=== PATIENT | male | born 1955 | race Caucasian/White ===

== ENCOUNTER → 2016-07-02 | Outpatient (CLI) | payer BC ==
[~2016-07-02] MED LIST: ASPI-428 PO; ATOR-26 PO; Albuterol inhaler INH; CHN/1 PO; CLOT10TR2 MT; DICL-201 PO; OMEG10007 PO
--- NOTE | 2016-07-02 15:50 | DIAGNOSTIC IMAGING REPORT ---
MRI OF THE LUMBAR SPINE WITHOUT IV CONTRAST CLINICAL HISTORY: Bilateral leg pain and numbness. COMPARISON STUDY: No priors. TECHNIQUE: MRI of the lumbar spine is performed utilizing various T1 and T2-weighted sequences in the axial and sagittal planes. IV contrast was not administered for this examination. FINDINGS: Vertebral body height is maintained throughout the lumbar spine. Minimal anterolisthesis is noted at L3-L4. Alignment is otherwise preserved. There are small anterior osteophytes seen throughout. A hemangioma is noted in the body of L3. The transverse and spinous processes are grossly intact. There is no evidence of spondylolysis. Intervertebral discs: There is mild degenerative disc desiccation seen throughout the lumbar spine. Loss of height is noted at L4-L5 and L5-S1. Spinal cord: The visualized spinal cord is normal in morphology and signal intensity. The conus medullaris terminates at the level of L1. The nerve roots of the cauda equina are normal in morphology. L1-L2: Unremarkable. L2-L3: Unremarkable. L3-L4: There is broad-based posterior disc bulge with annular fissure. In conjunction with hypertrophy of the ligamentum flavum and mild epidural lipomatosis, there is minimal acquired compromise of the central canal at this level with a minimum AP diameter of 9.5 mm. There is mild bilateral subarticular stenosis. The neural foramina are patent. L4-L5: There is minimal posterior disc bulge with annular fissure. In conjunction with epidural lipomatosis, there is minimal central canal narrowing at this level. The minimum AP diameter measures 9.5 mm. There is mild bilateral subarticular stenosis. The neural foramina are patent. L5-S1: There is mild posterior disc bulge. The central canal is patent. There is bilateral subarticular stenosis, with probable impingement on the exiting bilateral L5 nerve roots. Facet arthropathy is of no consequence. The neural foramina are clear. Sacrum: Visualized sacrum is normal in morphology and signal intensity. Soft tissues: The paraspinous soft tissues are normal as visualized. Parapelvic cysts are suspected in the left kidney. IMPRESSION: 1. Degenerative disc disease as above. There is minimal acquired compromise of the central canal. See discussion for detailed level by level analysis. 2. A disc bulge at L5-S1 causes bilateral subarticular stenosis and likely impinges on the exiting bilateral L5 nerve roots. See above. 3. No destructive bony process is identified. 4. There is mild epidural lipomatosis seen in the lower lumbar region. Dictated: 07/02/2016 3:29 PM Transcribed: 07/02/2016 3:50 PM YONI_James Electronically signed by: Gen Naranjo M.D. 07/02/2016 3:54 PM Dictated Date/Time: 07/02/2016 3:29 PM
== END | disposition home or self-care (01) ==
LOC: C.MRIBC 14:42
PROVIDERS: ATTEND Orthopaedic Surgery Orthopaedic Surgery of the Spine
DX: M48.06 Spinal stenosis, lumbar region (principal); M51.36 Other intervertebral disc degeneration, lumbar region; M51.26 Other intervertebral disc displacement, lumbar region

== ENCOUNTER 2024-01-05 07:58 | Observation (INO) ==
--- NOTE | 2023-11-20 12:31 | PAT Medication Instructions ---
Medication Instructions Date of Service November 20, 2023 Home Medications Medication Instructions Recorded lidocaine 5 % topical patch 1 patch topical DAILY #30 ea 07/24/23 (Lidoderm) celecoxib 100 mg capsule 100 mg PO BID #60 caps 10/24/23 albuterol sulfate 90 mcg/actuation aerosol inhaler 2 puffs inhalation Q6H PRN sob aspirin 81 mg tablet,delayed release (Adult Aspirin Regimen) 81 mg PO DAILY omega-3 fatty acids 1,000 mg capsule (Fish Oil Concentrate) 1,000 mg PO BID fluticasone propionate 230 mcg-salmeterol 21 mcg/actuation HFA inhaler (Advair HFA) 1 inh inhalation BID rosuvastatin 40 mg tablet 40 mg PO QAM lidocaine 5 % topical patch (Lidoderm) 1 patch topical DAILY ketoprofen 10 % topical cream in packet 1 applic topical DAILY tiotropium bromide 2.5 mcg/actuation mist for inhalation (Spiriva Respimat) 2 puff inhalation QAM celecoxib 100 mg capsule 100 mg PO BID cholecalciferol (vitamin D3) 25 mcg (1,000 unit) tablet (Vitamin D3) 25 mcg PO DAILY multivitamin 1 tab PO QAM Continue as directed lidocaine 5 % topical patch (Lidoderm) 1 patch topical DAILY (avoid placement near surgery site prior to surgery) ASK your surgeon for instructions celecoxib 100 mg capsule 100 mg PO BID ASK your prescriber and surgeon aspirin 81 mg tablet,delayed release (Adult Aspirin Regimen) 81 mg PO DAILY STOP taking 2 weeks before surgery (or as soon as possible if surgery is within 2 weeks) omega-3 fatty acids 1,000 mg capsule (Fish Oil Concentrate) 1,000 mg PO BID STOP taking 24 hours before surgery ketoprofen 10 % topical cream in packet 1 applic topical DAILY DO NOT take the morning of surgery cholecalciferol (vitamin D3) 25 mcg (1,000 unit) tablet (Vitamin D3) 25 mcg PO DAILY multivitamin 1 tab PO QAM Take morning of surgery With a small sip of water, OTHERWISE NOTHING TO EAT OR DRINK AFTER MIDNIGHT: albuterol sulfate 90 mcg/actuation aerosol inhaler 2 puffs inhalation Q6H PRN sob (use if needed; please bring rescue inhaler with you to hospital day of surgery if possible) fluticasone propionate 230 mcg-salmeterol 21 mcg/actuation HFA inhaler (Advair HFA) 1 inh inhalation BID rosuvastatin 40 mg tablet 40 mg PO QAM tiotropium bromide 2.5 mcg/actuation mist for inhalation (Spiriva Respimat) 2 puff inhalation QAM Take evening before surgery albuterol sulfate 90 mcg/actuation aerosol inhaler 2 puffs inhalation Q6H PRN sob (if needed) fluticasone propionate 230 mcg-salmeterol 21 mcg/actuation HFA inhaler (Advair HFA) 1 inh inhalation BID Other Notes If you have any questions please call us at [phone] or [phone] or [phone] or [phone]
--- NOTE | 2023-12-01 09:42 | Anesthesiology Consultation ---
Date of Service December 01, 2023 Assessment & Plan (1) Encounter for pre-operative examination: - Case discussed with Dr. Mello who advised patient is acceptable to proceed, does not need anything additional prior to surgery. - Outpatient joint assessment: Patient is currently scheduled for inpatient pathway. If re-evaluated and patient/surgeon requests outpatient pathway, patient is not ideal candidate for outpatient joint program from anesthesia standpoint. Chart Review Chart Review: Acceptable Risk for Surgery and Patient seen in Pre Admission Testing Teaching & Discussion Pre-Anesthesia Teaching/Discussion Notes: Instructed NPO after midnight before surgery, except medications with 15 cc of water. Medication instructions provided according to the PAT guidelines. History Surgery Operation Date: 12/22/23 11:15 Proposed Procedures p Left Anterior Total Hip Arthroplasty - Yrn Welsh, Height/Weight Height: 5 ft 10.5 in Weight: 107 kg Allergies Allergy/AdvReac Type Severity Reaction Status Date / Time No Known Allergies Allergy Verified 11/20/23 07:53 Medications Home Medications Medication Instructions Recorded Confirmed Last Taken albuterol sulfate 90 mcg/actuation 2 puffs inhalation Q6H PRN sob 01/30/18 11/20/23 Unknown aerosol inhaler aspirin 81 mg tablet,delayed 81 mg PO DAILY 01/30/18 11/20/23 Unknown release (Adult Aspirin Regimen) omega-3 fatty acids 1,000 mg 1,000 mg PO BID 01/30/18 11/20/23 Unknown capsule (Fish Oil Concentrate) fluticasone propionate 230 1 inh inhalation BID 08/20/22 11/20/23 Unknown mcg-salmeterol 21 mcg/actuation HFA inhaler (Advair HFA) rosuvastatin 40 mg tablet 40 mg PO QAM 06/04/23 11/20/23 Unknown ketoprofen 10 % topical cream in 1 applic topical DAILY 09/24/23 11/20/23 Unknown packet tiotropium bromide 2.5 2 puff inhalation QAM 09/24/23 11/20/23 Unknown mcg/actuation mist for inhalation (Spiriva Respimat) celecoxib 100 mg capsule 100 mg PO BID #60 caps 10/24/23 11/20/23 Unknown cholecalciferol (vitamin D3) 25 25 mcg PO DAILY 11/20/23 11/20/23 Unknown mcg (1,000 unit) tablet (Vitamin D3) lidocaine 5 % topical patch 1 patch topical DAILY #30 ea 11/20/23 Unknown (Lidoderm) multivitamin 1 tab PO QAM 11/20/23 11/20/23 Unknown Past Medical History Medical History (Updated 12/01/23 @ 16:27 by Tyra Ahumada PA-C) CAD (coronary artery disease) denies stents or surgery-chest CT 07/2023: Atherosclerosis of the thoracic aorta and coronary vasculature. Dyslipidemia History of COVID-19 (03/2023) no hosp; resolved HTN (hypertension) controlled, stable per pt Hx of fracture of femur (~1970) left Low back pain Lumbar spinal stenosis Sleep apnea O2 @ 2lpm hs; denies any other lung/breathing issues Patient denies h/o stroke, seizures, heart attack, heart failure, DM, blood clots/DVTs or blood transfusions. Exercise / Class Metabolic Activity II 4-5 Yardwork/Stairs/Walk up hill (denies chest discomfort or shortness of breath with one flight of stairs) Past Surgical History Surgical History History of open reduction and internal fixation (ORIF) procedure (1970) left femur fx Hx of appendectomy Hx of arthroscopy of left knee Hx of colonoscopy Past Anesthesia History No Hx of Anesthesia Complications and No Family Hx of Anesthesia Complications History of PONV No Hx of PONV and No Hx of Motion Sickness Social History Smoking Status: Current every day smoker tobacco type: cigarettes Smoking cigarettes per day: 10-15 per day - advised Do You Dip or Chew Tobacco: No Hx Alcohol Use: Yes Alcohol type: beer alcohol intake frequency: holidays/special occasions only Hx Substance Use: Yes (advised) substance use type: marijuana Last Used Substance Other:: "couple weeks ago" Review of Systems Patient denies chest pain, shortness of breath, dyspnea on exertion, reflux, fever, chills, cough, wheezing, or palpitations. Physical Exam Vital Signs Vitals BP 117/76 P 55 TEMP 98.2 SP02 95% on RA RESP 18 Physical Patient resting comfortably in chair in no acute distress, alert and oriented, responding appropriately throughout visit Full cervical extension range of motion without pain TMD 3.5 finger breadths Mallampati Score 3 Dentition: several missing teeth, denies chipped or loose teeth, caps/crowns, implants or bridges Lungs: normal respiratory effort. Good air movement, clear throughout to auscu ltation, no adventitious breath sounds Cardiac: regular rate and rhythm, no murmurs noted Carotid arteries: negative bruit bilat Lab Results Anesthesia Preop Results Results Anesthesia Widget: WBC 7.22 K/ul (4.8-10.8) 12/01/23 Hgb 15.3 g/dl (14.0-18.0) 12/01/23 Hct 46.4 % (42.0-52.0) 12/01/23 Plt 191 K/uL (130-400) 12/01/23 Na 138 mmol/L (136-145) 12/01/23 K 5.3 mmol/L (3.5-5.1) H 12/01/23 Cl 105 mmol/L (98-107) 12/01/23 CO2 27 mmol/L (21-32) 12/01/23 BUN 26 mg/dl (6-23) H 12/01/23 Creat 1.22 mg/dl (0.6-1.4) 12/01/23 Glucose Level 112 mg/dl (70-99(Fasting)) H 12/01/23 PT 9.9 Seconds (9.0-12.0) 12/01/23 PTT 26 Seconds (21-31) 12/01/23 INR 0.9 (0.9-1.1) 12/01/23 Blood Type O Positive 12/01/23 Antibody Screen NEGATIVE 12/01/23 Testing Electrocardiogram Date: 11/18/23 Sinus bradycardia, rate 58 bpm Left axis deviation RBBB Echocardiogram Date: 03/17/23 EF 50-54% Sinus bradycardia at 50 bpm Moderate cLVH Normal LV wall motion Moderate aortic valve sclerosis Proximal ascending thoracic aorta is mildly enlarged at 3.9 cm Stress Test Date: 04/05/22 Pharmacologic MPHR 55% Normal without evidence of scar or inducible ischemia EF 60% Other Testing Chest CT 08/22/23 Tiny scattered calcified granulomas. Atherosclerosis of the thoracic aorta and coronary vasculature. Stable right adrenal calcification. Borderline ectasia of the ascending thoracic aorta measuring up to proximally 3.9 cm.
--- NOTE | 2024-01-01 07:13 | History & Physical Report ---
Date of Service January 01, 2024 Assessment & Plan (1) Degenerative joint disease of left hip: We will proceed with a left anterior total of arthroplasty. Postoperatively he will be started on aspirin for DVT prophylaxis and kept overnight in the hospital for postop medical management. He plans to use fit for play upon discharge. History of Present Illness Chief Complaint: Osteoarthritis of the left hip. Primary Care Provider: Darrick Acosta MD Víctor is a pleasant 68-year-old male who has been dealing with chronic increasing left hip and groin pain. He has been seen by another provider. He had an intraarticular hip injection about 2 months ago. That took care of all of his pain. He is very happy with that. Unfortunately, it lasted 2 weeks. He is still struggling with his left hip. X-rays and clinical examination been diagnostic for advanced osteoarthritis of the left hip. After failing conservative treatment, he has elected to proceed with a left total hip arthroplasty. Allergies Allergy/AdvReac Type Severity Reaction Status Date / Time No Known Allergies Allergy Verified 11/20/23 07:53 Home Medications Medication Instructions Recorded Confirmed Type albuterol sulfate 90 mcg/actuation 2 puffs inhalation Q6H PRN sob 01/30/18 11/20/23 History aerosol inhaler aspirin 81 mg tablet,delayed 81 mg PO DAILY 01/30/18 11/20/23 History release (Adult Aspirin Regimen) omega-3 fatty acids 1,000 mg 1,000 mg PO BID 01/30/18 11/20/23 History capsule (Fish Oil Concentrate) fluticasone propionate 230 1 inh inhalation BID 08/20/22 11/20/23 History mcg-salmeterol 21 mcg/actuation HFA inhaler (Advair HFA) rosuvastatin 40 mg tablet 40 mg PO QAM 06/04/23 11/20/23 History ketoprofen 10 % topical cream in 1 applic topical DAILY 09/24/23 11/20/23 History packet tiotropium bromide 2.5 2 puff inhalation QAM 09/24/23 11/20/23 History mcg/actuation mist for inhalation (Spiriva Respimat) celecoxib 100 mg capsule 100 mg PO BID #60 caps 10/24/23 11/20/23 Rx cholecalciferol (vitamin D3) 25 25 mcg PO DAILY 11/20/23 11/20/23 History mcg (1,000 unit) tablet (Vitamin D3) lidocaine 5 % topical patch 1 patch topical DAILY #30 ea 11/20/23 Rx (Lidoderm) multivitamin 1 tab PO QAM 11/20/23 11/20/23 History diclofenac sodium 1 % topical gel 4 g topical QID #100 grams 12/14/23 Rx (Voltaren Arthritis Pain) Past Med/Surg History Problem List Degenerative joint disease of left hip Elevated blood pressure reading Left knee pain Left hip pain Lumbar facet joint pain Greater trochanteric bursitis Lumbar spinal stenosis (Chronic) History of appendectomy (Chronic) History of arthroscopy of left knee (Chronic) Lumbar radiculopathy (Chronic) CAD (coronary artery disease) (Chronic) Dyslipidemia (Chronic) History of appendectomy (Chronic) Low back pain radiating to both legs (Chronic) History of high cholesterol (Chronic) Medical History Low back pain Hx of fracture of femur (~1970) left CAD (coronary artery disease) denies stents or surgery-chest CT 07/2023: Atherosclerosis of the thoracic aorta and coronary vasculature. Lumbar spinal stenosis History of COVID-19 (03/2023) no hosp; resolved HTN (hypertension) controlled, stable per pt Dyslipidemia Sleep apnea O2 @ 2lpm hs; denies any other lung/breathing issues Surgical History Hx of arthroscopy of left knee Hx of colonoscopy History of open reduction and internal fixation (ORIF) procedure (1970) left femur fx Hx of appendectomy Social History Smoking Status: Current every day smoker Tobacco Type: Cigarettes Cigarettes Per Day: 10-15 per day - advised; Second Hand Exposure: No; Do You Dip or Chew Tobacco: No; Tobacco Cessation Education Requested by Patient: No Hx Alcohol Use: Yes Alcohol type: beer Hx Substance Use: Yes (advised) Last Used Substance Other:: "couple weeks ago" Preferred Language: [place] Communication Ability: Effective Visual Impairment: No Limitations Hearing Ability: Normal Tire Curer Required: No Beliefs That Will Affect Care: None marital status: Current Living Situation: Spouse current occupational status: employed current occupation: [employer] Other Information That Helps Us Care for You: No Feels Safe at Home: Yes Safety Concerns: Feels Safe At This Time Assistive Devices: Denture - Upper, Glasses and Oxygen - at Night Review of Systems All systems reviewed & are unremarkable except as noted in HPI & below. Physical Exam On physical examination left hip, he has decreased range of motion. He has pain with forced internal/external rotation.. Constitutional WD/WN, vitals as above Eyes PERRL, conjunctivae normal, anicteric sclerae ENMT external ear and nose normal, oropharynx normal Neck trachea midline, no thyromegaly Respiratory normal respiratory effort Cardiovascular RRR, no murmur, no edema Gastrointestinal (Abdomen) normal bowel sounds, soft, nontender, no hepatosplenomegaly Psychiatric A+Ox3, euthymic affect Results & Data Results & Data Laboratory Results . Diagnostic Findings X-rays of the left hip show advanced osteoarthritis with joint space narrowing, osteophyte formation, and [id number] articulation. PG Care Time/CCT Total # of Minutes Spent Total Time Spent with Patient: Total time spent is greater than 50% in coordination of care (as documented) at patient's floor/unit and/or counseling patient: Coding Level of Care Code None Diagnoses Primary osteoarthritis of left hip M16.12 Osteoarthritis type: primary (1) Degenerative joint disease of left hip Osteoarthritis type: primary Qualified Code(s): M16.12 - Unilateral primary osteoarthritis, left hip
[~2024-01-05 07:58] MED LIST changes: -ASPI-428 PO; -ATOR-26 PO; -Albuterol inhaler INH; +BUPIVACAINE 0.5 % 5 MG/1 ML PF 10ML VIAL ONE; -CHN/1 PO; -CLOT10TR2 MT; -DICL-201 PO; +MIDAZOLAM HCL 1 MG/ML 2ML VIAL ONE; -OMEG10007 PO; +fentaNYL citrate PF 100 MCG/2 ML VIAL ONE
--- NOTE | 2024-01-05 08:04 | History & Physical Bridge Note ---
Date of Service January 05, 2024 History & Physical Bridge Note I have examined the patient, reviewed the History & Physical and in the interval since the performance of the History & Physical I have noted the following changes of clinical significance: no changes noted
--- OUTSIDE RECORDS SUMMARY | 2024-01-05 08:14 | External Medical Summary | Summary of Care ---
Author Name Unknown Organization [facility] Address [address] [place] [address] Phone [phone] Care Team Providers Care Caser Name Role Phone Darrick Acosta MD Primary Care Provider [phone]- [phone] Encounter Details Date Type Department Care Team (Late st Contact Info) Description 12/18/2023 Orders Only [facility] [address] [place] [address] AugustAntonio MD [address] [place] [address] Allergies No known active allergiesdocumented as of this encounter (statuses as of 12/18/2023) Medications Medication Sig Dispensed Refills Start Date End Date Status CHANTIX STARTING MONTH ELEANOR 0.5 MG X 11 & 1 MG X 42 PO TABSIndications:T obacco use disorder Take as directed on box 1 Package 0 11/05/2011 Active CHANTIX CONTINUING MONTH ELEANOR 1 MG PO TABSIndications:T obacco use disorder One tablet twice daily as directed on box 1 Package 4 11/05/2011 Active OMEGA-3 FISH OIL 1000 MG PO CAPSIndications:D yslipidemia, goal LDL below 100 Take 1 Capsule by mouth in the morning. 60 Cap 5 11/23/2013 Active ECOTRIN LOW STRENGTH 81 MG PO TBECIndications:R outine medical exam Take 1 Tablet by mouth at bedtime. 1 Tab 0 11/23/2013 Active CHANTIX STARTING MONTH ELEANOR 0.5 MG X 11 & 1 MG X 42 PO TABSIndications:T obacco use disorder Take as directed on box 1 Package 0 11/23/2013 Active CHANTIX STARTING MONTH ELEANOR 0.5 MG X 11 & 1 MG X 42 PO TABS Take as directed on box 1 Package 0 06/13/2014 Active Vitamin D-3 25 MCG (1000 UT) Oral Capsule Take 1 Capsule by mouth in the morning. Active Multi-Vitamin Daily Oral Tablet Take 1 Tablet by mouth in the morning. Active Econazole Nitrate 1 % External Cream (Spectazole)Indic ations:Tinea corporis,Majocchi 's granuloma,Onychom ycosis,Tinea pedis of both feet,Tinea manuum Apply 2x daily to rash in groin/legs/arm/fee t until next derm appointment 170 g 2 01/07/2023 Active Rosuvastatin Calcium 40 MG Oral Tablet (Crestor)Indicati ons:Dizziness,Asy mptomatic stenosis of right carotid artery,Dyslipidem ia, goal LDL below 70 Take 1 Tablet by mouth in the morning. 100 Tablet 3 03/07/2023 Active Celecoxib 100 MG Oral Capsule (CeleBREX) Take 1 Capsule by mouth in the morning and 1 Capsule before bedtime. Active oxygen IN GAS Use 2 L/min(Oxygen) as directed at bedtime. Active Spiriva Respimat 2.5 MCG/ACT Inhalation Aerosol Solution (Tiotropium [place] Monohydrate) Inhale 2 Puffs by mouth in the morning. 12 g 5 09/15/2023 Active Fluticasone-Salme terol 230-21 MCG/ACT Inhalation Aerosol (Advair HFA) INHALE TWO PUFFS BY MOUTH EVERY MORNING ANd 2 every evening 24 g 2 10/02/2023 10/01/2024 Active documented as of this encounter (statuses as of 12/18/2023) Active Problems Problem Noted Date Diagnosed Date Dyslipidemia, goal LDL below 70 07/08/2016 ASCVD (arteriosclerotic cardiovascular disease) 06/26/2016 PVD (peripheral vascular disease) 04/05/2016 Carotid artery disease 11/26/2013 Overview: 50-69% Tobacco use disorder 11/05/2011 documented as of this encounter (statuses as of 12/18/2023) Resolved Problems Problem Noted Date Diagnosed Date Resolved Date Epidermal inclusion cyst 06/13/2016 Asymptomatic carotid artery stenosis 04/15/2016 12/30/2018 Idiopathic neuropathy 11/06/20152017 Respiratory abnormality 11/06/201502/26 Neuropathy 09/27/2015 11/06/2015 Left-sided carotid artery disease 06/08/2015 01/31/2021 Obesity, Class I, BMI 30.0-3 4.9 (see actual BMI) 03/09/2015 03/13/2017 Overview: bmi= 30.27 03/09/15 History of tobacco use 03/09/201509/26 Screening for prostate cancer 02/27/2015 03/13/2017 Carotid artery calcification 11/23/2013 03/09/2015 Conjunctivitis 06/24/2013 03/09/2015 Overweight (BMI 25.0-29.9) 05/12/2012 1 05/13/2016 Overview: bmi= 28.65 05/12/12 Dermatitis 11/05/2011 03/09/2015 Dermatitis 11/05/2011 03/13/2017 Special screening for malign ant neoplasm of prostate 11/05/2011 03/09/2015 OBESITY, BMI= 30.20 10/12/10 10/12/2010 03/13/2017 OVERWEIGHT, BMI= 27.95 03/30/10 03/30/2010 03/13/2017 Special screening for malign ant neoplasms, colon 03/30/2010 03/13/2017 ROTATOR CUFF SYNDROME, RIGHT SHOULDER 11/16/2009 03/09/2015 Screening for prostate cancer 11/16/2009 03/13/2017 OVERWEIGHT 11/16/2009 03/30/2010 Shoulder joint pain 04/06/2009 03/09/20 15 Dermatitis 10/05/2008 11/05/2011 Screening for prostate cancer 10/06/2007 07/06/2008 Overview: Resolved per Screening Diagnosis Protocol #6 Need for influenza vaccination 04/01/2007 03/09/2015 Impotence of organic origin 04/01/2007 03/09/2015 Overweight (BMI 25.0-29.9) 04/01/2007 1 05/09/2014 Spasm of muscle 04/01/2007 10/06/2007 Shoulder joint pain 09/30/2006 10/06/19 08 Routine medical exam 09/30/2006 015 OBESITY, BMI= 31.16 09/30/06 09/30/2006 1 05/13/2016 Diverticulosis - ASYMPTOMATIC 07/18/2005 03/09/2015 Mixed dyslipidemia 05/07/2005 8 ADVANCE DIRECTIVE INFORMATION 04/09/2005 03/09/2015 Overview: brochure given to pt. Tobacco use disorder 04/09/2005 012 Dyslipidemia, goal to be determined 04/06/2009 Hemorrhoids 03/09/2015 Benign neoplasm of colon 01/2012 Overview: 4 small polyps Dyslipidemia, goal LDL below 100 07/08/2016 documented as of this encounter (statuses as of 12/18/2023) Immunizations Name Administration Dates Next Due COVID-19 mRNA, LNP-s, No Pre serve, 2-Dose Series (Pfizer) 02/27/2021,07/19/2020,06/23/2020 Pneumococcal Conjugate Vacci ne, 20-valent ([id number]) 05/31/2022 Pneumococcal Polysaccharide PPV23 (Pneumovax) 01/31/2021,03/30/2010,10/05/2008(Defe rred: Patient Refused - check ins) Seasonal Influenza, PF, 6 M & above, IM , (FluLaval or Fluzone) 12/31/2019,02/15/2019 02/16/2020 Seasonal Influenza, Quadriva lent Hd (Fluzone Hd) 02/05/2023,01/18/2022,01/31/2021 Seasonal Influenza, Quadriva lent, No Preserve, IM 03/15/2016,03/09/2015 Seasonal Influenza, Split, I IV3, With Preserve, Inj 05/02/2012,03/30/2010,02/26/2009,11/04/2007,04/01/2007 TDAP (age 10 and older)(Boostrix) 02/15/2019 02/16/2020 TDAP, Age 7 and older, IM (Adacel) 10/05/2008 Zoster Vaccine Recombinant (Shingrix) 06/11/2019 ,02/15/2019 06/18/2019 documented as of this encounter Social History Tobacco Use Types Packs/Day Years Used Date Smoking Tobacco: Every Day Cigarettes 0.5 44 Smokeless Tobacco: Never Comments:began at age 16 Alcohol Use Standard Drinks/Week Comments Yes 0 (1 standard drink = 0.6 oz pure alcohol) social (once or twice per month) PHQ-2 Answer Date Recorded PHQ Adult Total Score 0 02/04/2022 Hunger Vital Sign Answer Date Recorded Within the past 12 months, y ou worried that your food would run out before you got the money to buy more. Never true 11/09/19 23 Within the past 12 months, t he food you bought just didn't last and you didn't have money to get more. Never true 11/08/2022 Childcare Answer Date Recorded Do you feel overwhelmed with taking care of a child, family member or friend? No 11/08/2022 Does your family need help f inding childcare? (Household - for ages 0-17 years) Not on file 11/08/2022 Clothing Answer Date Recorded Have you been unable to get clothing when it was really needed? No 11/08/2022 Is your family able to get c lothes or diapers when needed? (Household - for ages 0-17 years) Not on file 11/08/2022 Personal Safety Answer Date Recorded Do you feel unsafe or have concerns for your saf ety? No 11/08/2022 Do you have concerns for you r family's safety? (Household - for ages 0-17 years) Not on file 11/08/2022 Utilities Answer Date Recorded Do you have trouble paying y our heating, water, or electric bill? (Adult - for ages 18 years and over) Not on file 11/10/2023 Is your family able to pay t he heat, water, or electric bill? (Household - for ages 0-17 years) Not on file 11/10/2023 Does your family have access to good internet? (Household - for ages 0-17 years) Not on file 11/10/2023 Employment Status Answer Date Recorded Are you unemployed or without regular income? No 11/08/2022 Does the household have a re gular source of income? (Household - for ages 0-17 years) Not on file 11/08/2022 Social Connections Answer Date Recorded How often do you feel lonely or isolated from those around you? (Adult - for ages 18 years and over) Not on file 11/10/2023 Financial Resource Strain Answer Date R ecorded Do you have any trouble payi ng for your medications, or do you think you might in the future? Yes 11/08/2022 Does your family have troubl e paying for medicine? (Household - for ages 0-17 years) Not on file 11/08/2022 Transportation Needs Answer Date Record ed READ ONLY Do you have troubl e getting a ride to medical visits or work? Never True 11/08/2022 Does your family have a hard time getting a ride to doctors visits? (Household - for ages 0-17 years) Not on file 11/08/2022 Has lack of transportation k ept you from medical appointments, meetings, work, or from getting things needed for daily living? Check all that apply. (Adult - for ages 18 years and over) Not on file 11/08/2022 Do you (or your family) have trouble finding or paying for a ride (transportation)? (Household - for ages 0-17 years) Not on file 11/08/2022 Housing Stability Answer Date Recorded Do you currently live in a s helter or have no steady place to sleep at night? No 11/08/2022 READ ONLY Do you think you a re at risk of becoming homeless? No 11/08/2022 Does your family worry about paying for your home or becoming homeless? (Household - for ages 0-17 years) Not on file 0 11/08/2022 Are you homeless or worried that you might be in the future? (Adult - for ages 18 years and over) Not on file Are you (or your family) zaid eless or worried that you might be in the future? (Household - for ages 0-17 years) Not on file Food Insecurity Answer Date Recorded Do you need food for this week? No 11/08/2022 Are you able to get enough f ood for your family? (Household - for ages 0-17 years) Not on file 11/08/2022 Does your family need food t his week? (Household - for ages 0-17 years) Not on file 11/08/2022 Do you always have enough fo od for your family? (Household - for ages 0-17 years) Not on file 11/08/2022 Sex and Gender Information Value Date Recorded Sex Assigned at Male 11/08/2022 10:34 AM EDT Gender Identity Male 11/08/2022 10:34 AM EDT Sexual Orientation Straight 11/08/2022 10 :34 AM EDT Job Start Date Occupation Industry Not on file Not on file Not on file documented as of this encounter Plan of Treatment Upcoming Encounters Date Type Department Care Team (Late st Contact Info) Description 02/09/2024 8:20 AM EDT Office Visit [facility] [address] [facility] [phone] Darrick Acosta MD [address] [place] [address] 03/23/2024 10:20 AM EST Office Visit [facility] [address] [facility] [place] [phone] Millie Hwang DO [address] [place] [address] 07/27/2024 9:00 AM EDT Office Visit Cardiology, [facility] [address] [facility] [place] [address] Kassandra Phillips CRNP [address] [place] [address] [place] [address] 08/23/2024 9:00 AM EDT [facility] [address] [facility] [place] [address] 09/16/2024 8:20 AM EDT Office Visit Pulmonary Medicine, [facility] [address] [facility] [place] [address] Chai Crum MD [address] [place] [address] Scheduled Procedures Name Priority Associated Diagnoses Date/Ti me COLONOSCOPY FLEXIBLE PROXIMAL DIAGNOSTIC Recall History of colon polyps Health Maintenance Due Date Last Done Comments Cologuard 2000 Fecal Occult Blood Test 2000 Sigmoidoscopy 2000 DISCUSS TOBACCO CESSATION (REFER TO SMARTSET #2494) 03/09/2016 03/09/2015 (Discussed) Adult Wellness Visit 2021 COVID-19 Vaccine ( season) 2022 02/27/2021, 07/19/2020, 06/23/2020 Depression Screening 02/04/2023 02/04/2022, 03/09/20 15 Influenza Vaccine (FLU shot) (#1) 2023 02/05/2023, 01/18/2022, 01/31/2021, Additional history exists Diabetes Screening 02/24/2026 02/24/2023, 1 , 02/03/2023, Additional history exists Colonoscopy 07/24/2026 07/24/2021, 06/27, 01/29/2011, Additional history exists Colorectal Cancer Screening 07/24/2026 DTaP,Tdap,and Td Vaccines (3 - Td or Tdap) 02/15/2029 02/15/2019, 10/05/2008 Zoster Vaccines Completed 06/11/2019, 02/15/2019 RETIRED - COLONOSCOPY-EVERY 5 YRS AGES 18-100 Discontinued 07/24/2021, 07/24/2021, 01/29/2011, Additional history exists Pneumococcal Vaccine: 65+ Years Completed 05/31/2022, 01/31/2021, 03/30/2010 AAA Screening Completed 05/05/2023, 01/13/2019 Lung Cancer Screening Completed 08/22/2023 , 08/16/2022, 02/11/2022, Additional history exists HPV (Gardasil) Vaccine Aged Out No lo nger eligible based on patient's age to complete this topic Hepatitis B Vaccine Aged Out No longe r eligible based on patient's age to complete this topic MENINGOCOCCAL (MENACTRA/MENVEO) Aged Out No longer eligible based on patient's age to complete this topic documented as of this encounter Medical Devices Not on filedocumented as of this encounter Procedures Procedure Name Priority Date/Time Associated Diagnosis Comments XR CHEST 1 VIEW Routine 12/14/2023 documented in this encounter Results * XR CHEST 1 VIEW (12/14/2023) Anatomical Region Laterality Modality Chest Other 12/14/2023 Neymar Ramírez MD RADIOLOGY (RAD GENER AL) documented in this encounter Care Teams Caser Relationship Specialty Start Date End Date Darrick Acosta MD [address] [place] [address] PCP - General Family Medicine 12/29/18 documented as of this encounter
--- OUTSIDE RECORDS SUMMARY | 2024-01-05 08:14 | External Medical Summary | Summary of Care ---
Author Name Unknown Organization [facility] Address [address] [facility] [address] Phone [phone] Care Team Providers Care Client Development Consultant Name Role Phone Darrick Acosta MD Primary Care Provider +1- [phone] Encounter Details Date Type Department Care Team (Late st Contact Info) Description 12/14/2023 Result Scan Unspecified Department <No scans attached> Allergies No known active allergiesdocumented as of this encounter (statuses as of 12/18/2023) Medications Medication Sig Dispensed Refills Start Date End Date Status OMEGA-3 FISH OIL 1000 MG PO CAPSIndications:D yslipidemia, goal LDL below 100 Take 1 Capsule by mouth in the morning. 60 Cap 5 11/23/2013 Active ECOTRIN LOW STRENGTH 81 MG PO TBECIndications:R outine medical exam Take 1 Tablet by mouth at bedtime. 1 Tab 0 11/23/2013 Active Vitamin D-3 25 MCG (1000 UT) [...] Respimat 2.5 MCG/ACT Inhalation Aerosol Solution (Tiotropium [place] Monohydrate) Inhale 2 Puffs by mouth in [...] (Pfizer) 02/27/2021,07/19/2020,06/23/2020 Pneumococcal Conjugate Vacci ne, 20-valent ([id number]) 05/31/2022 Pneumococcal Polysaccharide PPV23 (Pneumovax) 01/31/2021,03/30/2010,10/05/2008(Defe rred: Patient Refused - check ins) Seasonal Influenza, PF, 6 M & above, IM , (FluLaval or Fluzone) 12/31/2019,02/15/2019 02/16/2020 Seasonal Influenza, Quadriva lent Hd (Fluzone Hd) 02/05/2023,01/18/2022,01/31/2021 Seasonal Influenza, Quadriva lent, No Preserve, IM 03/15/2016,03/09/2015 Seasonal Influenza, Split, I IV3, With Preserve, Inj 05/02/2012,03/30/2010,02/26/2009,1104/2007,04/01/2007 TDAP (age 10 and older)(Boostrix) 02/15/2019 02/16/2020 [...] 11/08/2022 Does the household have a re lar source of income? (Household - for ages [...] Description 02/09/2024 8:20 AM EDT Office Visit [facility] [address] [facility] [phone] Darrick Acosta [facility] [address] [facility] [place] [address] 03/23/2024 10:20 AM EST Office Visit [facility] [address] [facility] [place] [phone] Millie Hwang DO [address] [facility] [place] [address] 07/27/2024 9:00 AM EDT Office Visit Cardiology, [address] [place] [address] Kassandra Phillips CRNP [address] [facility] [place] [address] 08/23/2024 9:00 AM EDT Imaging Radiology [facility] [address] [place] [address] 09/16/2024 8:20 AM EDT Office Visit Pulmonary Medicine, [address] [place] [address] Chai Crum MD [address] [place] [address] Scheduled Procedures Name Priority Associated Diagnoses Date/Ti me COLONOSCOPY FLEXIBLE PROXIMAL DIAGNOSTIC Recall History of colon polyps Health Maintenance Due Date Last Done Comments Cologuard 2000 Fecal Occult Blood Test 2000 Sigmoidoscopy 2000 DISCUSS TOBACCO CESSATION (REFER TO SMARTSET #3291) 03/09/2016 03/09/2015 (Discussed) Adult Wellness Visit 2021 [...] Procedure Name Priority Date/Time Associated Diagnosis Comments RADIOLOGY SCANNED RESULT 12/14/2023 documented in this encounter Results * RADIOLOGY SCANNED RESULT (12/14/2023) 12/14/2023 No Physician Data Unknown DIAGNOSTIC RAD IOLOGY SERVICES documented in this encounter Care Teams Client Development Consultant Relationship Specialty Start Date End Date Darrick Acosta MD [address] [place] [facility] [place] [address] PCP - General Family Medicine 12/29/18 documented as of this encounter
--- OUTSIDE RECORDS SUMMARY | 2024-01-05 08:14 | External Medical Summary | Summary of Care ---
Author Name Unknown Organization [facility] Address [address] [place] [address] Phone [phone] Care Team Providers Care Tourism Radio Presenter Name Role Phone Darrick Acosta MD Primary Care Provider [phone]- [phone] Reason for Referral * Evaluate & Treat - Unlimited Visits (Within 10 days (routine)) - Authorized Specialty Diagnoses / Procedures Referred By Jorge dillard Referred To Contact Physical Therapy / Physical Medicine And Rehab Diagnoses Impingement syndrome of left shoulder Antonio Pro MD [address] [facility] [place] [address] Referral ID Status Reason Start Date Expiration Date Visits Requested Visits Authorized [id number] Authorized Specialty Services Required 12/17/2023 999 999 Question Answer Referral Priority Within 10 days (routine) Where should this appointment be scheduled? [facility] Comments Left shoulder injury, impingement Reason for Visit * Reason Onset Date Comments Hospital Follow-Up Would like to know if he is able to do exercises to help build strength is to have hip surgery on Friday Hospital Follow-Up 12/17/2023 Encounter Details Date Type Department Care Team (Late st Contact Info) Description 12/17/2023 12:40 PM EDT Office Visit [facility] [place] Mathur [address] [phone] Antonio Pro MD [address] [place] [id number] Impingement syndrome of left shoulder*; Fall, subsequent encounter; Tobacco use disorder Allergies No known active allergiesdocumented as of this encounter (statuses as of 12/17/2023) Medications Medication Sig Dispensed Refills Start Date [...] Respimat 2.5 MCG/ACT Inhalation Aerosol Solution (Tiotropium [place] Monohydrate) Inhale 2 Puffs by mouth in the morning. 12 g 5 09/15/2023 Active Fluticasone-Salme terol 230-21 MCG/ACT Inhalation Aerosol (Advair HFA) INHALE TWO PUFFS BY MOUTH EVERY MORNING ANd 2 every evening 24 g 2 10/02/2023 10/01/2024 Active documented as of this encounter (statuses as of 12/17/2023) Active Problems Problem Noted Date Diagnosed Date Dyslipidemia, goal LDL below 70 07/08/2016 ASCVD (arteriosclerotic cardiovascular disease) 06/26/2016 PVD (peripheral vascular disease) 04/05/2016 Carotid artery disease 11/26/2013 Overview: 50-69% Tobacco use disorder 11/05/2011 documented as of this encounter (statuses as of 12/17/2023) Resolved Problems Problem Noted Date Diagnosed Date [...] as of this encounter (statuses as of 12/17/2023) Immunizations Name Administration Dates Next Due COVID-19 mRNA, LNP-s, No Pre serve, 2-Dose Series (Pfizer) 02/27/2021,07/19/2020,06/23/2020 Pneumococcal Conjugate Vacci ne, 20-valent ([id number]) 05/31/2022 Pneumococcal Polysaccharide PPV23 (Pneumovax) 01/31/2021,03/30/2010,10/05/2008(Defe rred: Patient Refused - check ins) Seasonal Influenza, PF, 6 M & above, IM , (FluLaval or Fluzone) 12/31/2019,02/15/2019 02/16/2020 Seasonal Influenza, Quadriva lent Hd (Fluzone Hd) 02/05/2023,01/18/2022,01/31/2021 Seasonal Influenza, Quadriva lent, No Preserve, IM 03/15/2016,03/09/2015 Seasonal Influenza, Split, I IV3, With Preserve, Inj 05/02/2012,03/30/2010,02/26/2009,04/2007,04/01/2007 TDAP (age 10 and older)(Boostrix) 02/15/2019 02/16/2020 TDAP, Age 7 and older, IM (Adacel) 10/05/2008 Zoster Vaccine Recombinant (Shingrix) 06/11/2019 ,02/15/2019 06/18/2019 documented as of this encounter Social History Tobacco Use Types Packs/Day Years Used Date Smoking Tobacco: Every Day Cigarettes 0.5 44 Smokeless Tobacco: Never Tobacco Cessation:Ready to Q uit: Not Asked; Counseling Given: Not Answered Comments:began at age 16 Alcohol Use Standard [...] No 11/08/2022 Does the household have a [facility] source of income? (Household - for ages [...] on file documented as of this encounter Last Filed Vital Signs Vital Sign Reading Time Taken Comments Blood Pressure 120/74 12/17/2023 12:33 PM EDT Pulse 56 12/17/2023 12:33 PM EDT Temperature 36.3 C (97.3 F) 12/17/2023 1 2:33 PM EDT Respiratory Rate 17 12/17/2023 12:3 3 PM EDT Oxygen Saturation 91% 12/17/2023 12: 33 PM EDT will drop to 88 Inhaled Oxygen Concentration - - Weight 105.3 kg (232 lb 3.2 oz) 12/17/2023 12:33 PM EDT Height 180.3 cm (5' 11") 12/17/2023 12: 33 PM EDT Body Mass Index 32.39 12/17/2023 12:33 PM EDT documented in this encounter Progress Notes * Antonio Pro MD - 12/17/2023 12:45 PM EDT Images from the original note were not included. Assessment and Plan 60-year-old male presents for ED follow up after being evaluated for a fall onto his left shoulder on 12/14/2023. X-ray ruled out fracture. He was wearing a sling. Exam consistent with impingement without rotator cuff tear. Recommend home exercises for rotator cuff and referral to physical therapy.He is scheduled for left hip replacement next week. Given the significant pain and limited ROM of the left shoulder I do think he was struggled postoperatively. It is likely appropriate to postpone the procedure for 4-6 weeks to allow the shoulder to heal. Continue use of Voltaren gel for pain control. If not having his procedure next week he can return to using Celebrex judiciously given historyof CAD and PVD. 1. Impingement syndrome of left shoulder - PHYSICAL THERAPY REFERRAL OP 2. Fall, subsequent encounter 3. Tobacco use disorder Wrap-Up Follow up as needed. History of Present Illness The patient is a 68 year old male with past medical history of dyslipidemia, PVD, tobacco use who presents for hospital follow up. Patient evaluated in the ED on 12/14/2023 following a fall. 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 He fell in his left shoulder. Denies loss of consciousness or head trauma. He had no initial pain, however, workup 12 hours later with significant pain and therefore presented to the ED. In the ED he had x-rays that ruled out fracture. Given reassuring x-rays he was provided Voltaren gel for pain control and placed in a sling. It was recommended he follow up with PCP for ongoing outpatient management. Today he reports that pain is slightly improved. He continues to wear the sling it was provided in the ED. he was agreeable to physical therapy. His main concern today is an upcoming hip replacement scheduled for early next week. He was unable to bear any weight on the left shoulder in his concerned about using a walker following the hip replacement. Physical Exam Vitals: 12/17/23 1233 Temp: 36.3 C (97.3 F) Pulse: 56 Resp: 17 SpO2: 91% BP: 120/74 BMI: 32.4 Physical Exam Physical Exam Vitals reviewed. Constitutional: General: He is not in acute distress. Pulmonary: Effort: Pulmonary effort is normal. No respiratory distress. Musculoskeletal: Comments: No visible deformity of the left shoulder. Limited active range of motion above 90 withforward flexion and abduction. He was 4+ out of 5 strength with rotator cuff testing. Most pain with full and empty can. Neurological: Mental Status: He is alert. I spent a total of 30-39 minutes (exact time 37 mins) on the date of service in preparation, delivery, and documentation of the care provided to Víctor Lopez excluding any time spent in the performance of separately billed services or time spent by another provider/QHP. This note has been completed in part utilizing [employer] Speech Voice Recognition Software. Due to technical limitations of the software, grammatical errors, random word insertions, prounoun errors, and incomplete sentences may occur. Any formal questions or concerns about the content, text, or information contained within the body of this dictation should be directly addressed to the provider for clarification. documented in this encounter Nursing Notes * Henrietta Agustin LPN - 12/17/2023 12:39 PM EDT The patient has been properly identified by confirmation of name and date of . Chief Complaint Patient presents with Hospital Follow-Up Would like to know if he is able to do exercises to help build strength is to have hip surgery on Friday documented in this encounter Plan of Treatment Upcoming Encounters Date Type Department Care Team (Late st Contact Info) Description 02/09/2024 8:20 AM EDT Office Visit [facility] [address] [facility] [place] [phone] Darrick Acosta MD [address] [facility] [phone] 03/23/2024 10:20 AM EST Office Visit [facility] [address] [facility] [place] [phone] Millie Hwang DO [address] [facility] [place] [address] 07/27/2024 9:00 AM EDT Office Visit Cardiology, [address] [place] [address] Kassandra Phillips CRNP [address] [facility] [place] [id number] 08/23/2024 9:00 AM EDT Imaging Radiology [facility] [address] [place] [address] 09/16/2024 8:20 AM EDT Office Visit Pulmonary Medicine, [address] [place] [address] Chai Crum MD [address] [place] [address] Scheduled Procedures Name Priority Associated Diagnoses Date/Ti me COLONOSCOPY FLEXIBLE PROXIMAL DIAGNOSTIC Recall History of colon polyps Scheduled Referrals Name Type Priority Associated Diagnoses Orde r Schedule PHYSICAL THERAPY REFERRAL OP Referral Within 10 days (routine) Impingement syndrome of left shoulder Ordered: 12/17/2023 Health Maintenance Due Date Last Done Comments Cologuard 2000 Fecal Occult Blood Test 2000 Sigmoidoscopy 2000 DISCUSS TOBACCO CESSATION (REFER TO SMARTSET #3701) 03/09/2016 03/09/2015 (Discussed) Adult Wellness Visit 2021 [...] Not on filedocumented as of this encounter Visit Diagnoses Diagnosis Impingement syndrome of left shoulder- Primary Other affections of shoulder region, not elsewhere classified Fall, subsequent encounter Tobacco use disorder documented in this encounter Care Teams Tourism Radio Presenter Relationship Specialty Start Date End Date Darrick Acosta MD [address] [place] [address] PCP - General Family Medicine 12/29/18 documented as of this encounter
--- OUTSIDE RECORDS SUMMARY | 2024-01-05 08:14 | External Medical Summary | Summary of Care ---
Author Name Unknown Organization [facility] Address [address] [facility] [place] [address] Phone [phone] Care Team Providers Care French Binder Name Role Phone Darrick Acosta MD Primary Care Provider [phone]- [phone] Reason for Visit * Reason Comments NEW PATIENT Encounter Details Date Type Department Care Team (Late st Contact Info) Description 12/30/2023 9:00 AM EDT Office Visit Podiatry [facility] [address] [place] [address] Noemy Richards DPM [address] [place] [address] PVD (peripheral vascular disease) ([facility])* Allergies No known active allergiesdocumented as of this encounter (statuses as of 12/30/2023) Medications Medication Sig Dispensed Refills Start Date [...] Respimat 2.5 MCG/ACT Inhalation Aerosol Solution (Tiotropium [place] Monohydrate) Inhale 2 Puffs by mouth in the morning. 12 g 5 09/15/2023 Active Fluticasone-Salme terol 230-21 MCG/ACT Inhalation Aerosol (Advair HFA) INHALE TWO PUFFS BY MOUTH EVERY MORNING ANd 2 every evening 24 g 2 10/02/2023 10/01/2024 Active documented as of this encounter (statuses as of 12/30/2023) Active Problems Problem Noted Date Diagnosed Date Dyslipidemia, goal LDL below 70 07/08/2016 ASCVD (arteriosclerotic cardiovascular disease) 06/26/2016 PVD (peripheral vascular disease) 04/05/2016 Carotid artery disease 11/26/2013 Overview: 50-69% Tobacco use disorder 11/05/2011 documented as of this encounter (statuses as of 12/30/2023) Resolved Problems Problem Noted Date Diagnosed Date [...] as of this encounter (statuses as of 12/30/2023) Immunizations Name Administration Dates Next Due COVID-19 mRNA, LNP-s, No Pre serve, 2-Dose Series (Pfizer) 02/27/2021,07/19/2020,06/23/2020 Pneumococcal Conjugate Vacci ne, 20-valent ([id number]) 05/31/2022 Pneumococcal Polysaccharide PPV23 (Pneumovax) 01/31/2021,03/30/2010,10/05/2008(Defe rred: Patient Refused - check ins) Seasonal Influenza, PF, 6 M & above, IM , (FluLaval or Fluzone) 12/31/2019,02/15/2019 02/16/2020 Seasonal Influenza, Quadriva lent Hd (Fluzone Hd) 02/05/2023,01/18/2022,01/31/2021 Seasonal Influenza, Quadriva lent, No Preserve, IM 03/15/2016,03/09/2015 Seasonal Influenza, Trivalen t, (IIV3), with Preserv, (Fluzone) 05/02/2012,03/30/2010,02/26/2009,11/04/2007,04/01/2007 TDAP (age 10 and older)(Boostrix) 02/15/2019 [...] on file documented as of this encounter Progress Notes * Noemy Richards DPM - 12/30/2023 9:00 AM EDT Pt scheduled by outside senior premium auditor for nails and calluses. Explained we have not accepted any new care for over 6 years. Apologized for the inappropriate scheduling and provided list of local nail care providers. No charge for today. documented in this encounter Nursing Notes * Regla Strickland LPN - 12/30/2023 8:52 AM EDT Pt presents for new visit, states has 'spurs and calluses on both feet, I've been getting them dug out for about 20 years'. documented in this encounter Plan of Treatment Upcoming Encounters Date Type Department Care Team (Late st Contact Info) Description 02/09/2024 8:20 AM EDT Office Visit [facility] [address] [place] [phone] Darrick Acosta MD [address] [facility] [place] [phone] 03/23/2024 10:20 AM EST Office Visit Sleep Disorders Ctr [facility] [address] [facility] [place] [phone] Yenifer Hwangelyshoaib [place], [address] [facility] [place] [address] 07/27/2024 9:00 AM EDT Office Visit Cardiology, [facility] [address] [facility] [place] [address] Kassandra Phillips CRNP [address] [place] [address] 08/23/2024 9:00 AM EDT Imaging Radiology [facility] [facility] [address] [facility] [place] [address] 09/16/2024 8:20 AM EDT Office Visit Pulmonary Medicine, [facility] [address] [facility] [place] [address] Chai Crum MD [address] [facility] [address] Scheduled Procedures Name Priority Associated Diagnoses Date/Ti me COLONOSCOPY FLEXIBLE PROXIMAL DIAGNOSTIC Recall History of colon polyps Health Maintenance Due Date Last Done Comments Cologuard 2000 Fecal Occult Blood Test 2000 Sigmoidoscopy 2000 DISCUSS TOBACCO CESSATION (REFER TO SMARTSET #3291) 03/09/2016 03/09/2015 (Discussed) Adult Wellness Visit 2021 Depression Screening 02/04/2023 02/04/2022, 03/09/20 15 COVID-19 Vaccine ( season) 2023 02/27/2021, 07/19/2020, 06/23/2020 Influenza Vaccine (FLU shot) (#1) 2023 02/05/2023, 01/18/2022, 01/31/2021, Additional history exists Diabetes Screening 02/24/2026 02/24/2023, 1 , 02/03/2023, Additional history exists Colonoscopy 07/24/2026 07/24/2021, 06/27, 01/29/2011, Additional history exists Colorectal Cancer Screening 07/24/2026 DTap/Tdap Vaccines (3 - Td or Tdap) 02/15/2029 [...] as of this encounter Visit Diagnoses Diagnosis PVD (peripheral vascular disease) (HCC)- Primary Peripheral vascular disease, unspecified documented in this encounter Care Teams French Binder Relationship Specialty Start Date End Date Darrick Acosta MD [address] [place] [address] PCP - General Family Medicine 12/29/18 documented as of this encounter
[2024-01-05] MEDS: FAMOTIDINE 20 MG TAB PO SCH (08:33)
[2024-01-05] MEDS: ACETAMINOPHEN 500 MG TAB PO SCH ×2 (08:33→13:30)
[2024-01-05] MEDS: GABAPENTIN 300 MG CAP PO SCH (08:33)
[2024-01-05] MEDS: dexAMETHasone**PF** 10 MG/ML VIAL IV SCH (08:34)
[2024-01-05] MEDS: LR 60ML/HR IV SCH (08:34)
[2024-01-05] MEDS: LR 500ML BOLUS, THEN 15ML/HR IV SCH (08:34)
[2024-01-05] MEDS ORDERED: ATROPINE SULFATE 0.1 MG/ML 10ML SYR IV PRN (08:40)
[2024-01-05] MEDS ORDERED: fentaNYL citrate PF 100 MCG/2 ML VIAL IV PRN (08:40)
[2024-01-05] MEDS ORDERED: ePHEDrine sulfate 50 MG/ML AMP IV PRN (08:40)
[2024-01-05] MEDS ORDERED: ONDANSETRON INJ 2 MG/ML 2 ML VIAL IV PRN ×2 (08:40→11:31)
--- NOTE | 2024-01-05 08:40 | Anesthesiology Consultation ---
Date of Service January 05, 2024 Assessment & Plan Chart Review Chart Review: Acceptable Risk for Surgery and Patient NOT seen in Pre Admission Testing Consults Requested none ASA ASA3 Proposed Anesthesia Anesthesia Type: MAC Spinal Risk / Benefits Reviewed With: PT / POA / Parent / Guardian, Accepts Plan and Informed Consent Obtained History Surgery Operation Date: 01/05/24 09:00 Proposed Procedures p Left Anterior Total Hip Arthroplasty - Yrn Welsh, Height/Weight Height: 5 ft 10 in Weight: 105.2 kg Allergies Allergy/AdvReac Type Severity Reaction Status Date / Time No Known Allergies Allergy Verified 01/05/24 08:13 Medications Home Medications Medication Instructions Recorded Confirmed Last Taken albuterol sulfate 90 mcg/actuation 2 puffs inhalation Q6H PRN sob 01/30/18 01/05/24 Unknown aerosol inhaler aspirin 81 mg tablet,delayed 81 mg PO DAILY 01/30/18 01/05/24 01/04/24 22:00 release (Adult Aspirin Regimen) omega-3 fatty acids 1,000 mg 1,000 mg PO BID 01/30/18 01/05/24 12/23/23 capsule (Fish Oil Concentrate) fluticasone propionate 230 1 inh inhalation BID 08/20/22 01/05/24 Unknown mcg-salmeterol 21 mcg/actuation HFA inhaler (Advair HFA) rosuvastatin 40 mg tablet 40 mg PO QAM 06/04/23 01/05/24 01/02/24 ketoprofen 10 % topical cream in 1 applic topical DAILY 09/24/23 01/05/24 01/03/24 packet tiotropium bromide 2.5 2 puff inhalation QAM 09/24/23 01/05/24 Unknown mcg/actuation mist for inhalation (Spiriva Respimat) celecoxib 100 mg capsule 100 mg PO BID #60 caps 10/24/23 01/05/24 12/29/23 cholecalciferol (vitamin D3) 25 25 mcg PO DAILY 11/20/23 01/05/24 01/03/24 mcg (1,000 unit) tablet (Vitamin D3) lidocaine 5 % topical patch 1 patch topical DAILY #30 ea 11/20/23 01/05/24 01/02/24 (Lidoderm) multivitamin 1 tab PO QAM 11/20/23 01/05/24 01/02/24 diclofenac sodium 1 % topical gel 4 g topical QID #100 grams 12/14/23 01/05/24 01/03/24 (Voltaren Arthritis Pain) Active Medications Generic Name Dose Route Start Last Admin Trade Name Nelida PRN Reason Stop Dose Admin Acetaminophen 1,000 mg 01/05/24 06:00 01/05/24 08:33 Acetaminophen 500 Mg Tab PO 01/05/24 18:00 1,000 mg PREOP JADA Administration Dexamethasone Sodium Phosphate 10 mg 01/05/24 06:00 01/05/24 08:34 DexamethasonePf 10 Mg/Ml Vial IV 01/05/24 18:00 10 mg PREOP JADA Administration Famotidine 20 mg 01/05/24 06:00 01/05/24 08:33 Famotidine 20 Mg Tab PO 01/05/24 18:00 20 mg PREOP JADA Administration Gabapentin 300 mg 01/05/24 06:00 01/05/24 08:33 Gabapentin 300 Mg Cap PO 01/05/24 18:00 300 mg PREOP JADA Administration Lactated Ringer's 1,000 mls @ 15 mls/hr 01/05/24 06:00 01/05/24 08:34 Lr IV 01/05/24 18:00 15 mls/hr .Q24H JADA Administration Lactated Ringer's 1,000 mls @ 60 mls/hr 01/05/24 06:00 01/05/24 08:34 Lr IV 01/05/24 22:39 Not Given .[id number] JADA NPO Date Last Intake of Fluids: 01/04/24 Time Last Intake of Fluids: 22:30 Date Last Intake of Solids: 01/04/24 Time Last Intake of Solids: 21:30 Past Medical History Medical History Low back pain Hx of fracture of femur (~1970) left CAD (coronary artery disease) denies stents or surgery-chest CT 07/2023: Atherosclerosis of the thoracic aorta and coronary vasculature. Lumbar spinal stenosis History of COVID-19 (03/2023) no hosp; resolved HTN (hypertension) controlled, stable per pt Dyslipidemia Sleep apnea O2 @ 2lpm hs; denies any other lung/breathing issues Exercise / Class Metabolic Activity II 4-5 Yardwork/Stairs/Walk up hill Past Surgical History Surgical History Hx of arthroscopy of left knee Hx of colonoscopy History of open reduction and internal fixation (ORIF) procedure (1970) left femur fx Hx of appendectomy Past Anesthesia History No Hx of Anesthesia Complications and No Family Hx of Anesthesia Complications History of PONV No Hx of PONV and No Hx of Motion Sickness Social History Smoking Status: Current every day smoker tobacco type: cigarettes Smoking cigarettes per day: 10-15 per day - advised Do You Dip or Chew Tobacco: No Hx Alcohol Use: Yes Alcohol type: beer alcohol intake frequency: holidays/special occasions only Hx Substance Use: Yes (advised) substance use type: marijuana Last Used Substance Other:: "couple weeks ago" Physical Exam Vital Signs Last Vital Signs Temp 36.9 C 01/05/24 08:20 Pulse 53 L 01/05/24 08:20 Resp 18 01/05/24 08:20 BP 168/92 H 01/05/24 08:20 Pulse Ox 92 01/05/24 08:20 O2 Del Method Room Air 01/05/24 08:20 ENMT Mouth: + poor dentition (edentulous on top. 2 teeth (not loose) remain on bottom) Thyromental Distance: > or= 3.5 Finger Breadths Mallampati Class: II Neck normal visual inspection Respiratory normal respiratory effort Auscultation: lungs clear to auscultation bilaterally Cardiovascular Rate/Rhythm: regular rate and regular rhythm Psychiatric Orientation: alert Testing Electrocardiogram Date: 11/18/23 Sinus bradycardia, rate 58 bpm Left axis deviation RBBB Echocardiogram Date: 03/17/23 EF 50-54% Sinus bradycardia at 50 bpm Moderate cLVH Normal LV wall motion Moderate aortic valve sclerosis Proximal ascending thoracic aorta is mildly enlarged at 3.9 cm Stress Test Date: 04/05/22 Pharmacologic MPHR 55% Normal without evidence of scar or inducible ischemia EF 60% Other Testing Chest CT 08/22/23 Tiny scattered calcified granulomas. Atherosclerosis of the thoracic aorta and coronary vasculature. Stable right adrenal calcification. Borderline ectasia of the ascending thoracic aorta measuring up to proximally 3.9 cm.
[2024-01-05] MEDS: TRANEXAMIC ACID 1,000 MG **IV Pre-op IV SCH (08:57)
[2024-01-05] MEDS: ceFAZolin 2000MG 2,000 MG/15 ML SYR IV SCH ×2 (09:08→16:32)
[2024-01-05] MEDS ORDERED: ePHEDrine sulfate 50 MG/ML AMP ONE (09:23)
[2024-01-05] MEDS ORDERED: ONDANSETRON INJ 2 MG/ML 2 ML VIAL ONE (09:35)
[2024-01-05] MEDS ORDERED: PROPOFOL IV EMULSION 10 MG/ML 20 ML VIAL IV ONE (09:35)
[2024-01-05] MEDS ORDERED: LIDOCAINE 2% 2 ML VIAL/AMP(20MG/ML) INFIL ONE (09:35)
[2024-01-05] MEDS: ORTHO JOINT ANESTHETIC ONE (09:38)
--- NOTE | 2024-01-05 10:07 | Operative Report ---
PG Post Operative Report Pre & Post Diagnosis Operation Date: 01/05/24 09:00 Pre-Op Diagnosis: Degenerative Joint Disease Left Hip Post-Op Diagnosis: Degenerative Joint Disease Left Hip I identified the patient and participated in the time-out.: Yes Procedure Operation Date: 01/05/24 09:00 Actual Procedures p Left Anterior Total Hip Arthroplasty(Left) - Yrn Welsh DO Surgeon Yrn Welsh DO [facility] [employer] Yrn Ross PA-C Estimated Blood Loss 250 Findings Consistent with Post-Op Diagnosis Specimens Left femoral head Description of Procedure Implants used I used a [employer]immer[employer]omet total hip arthroplasty system with a size 6 standard offset Avenir Complete stem, a 36 mm G7 cup with a 25mm screw, an E1 polyethylen e liner, a 40 mm ceramic head with a +3.5 neck. Víctor arrived at the hospital for the above procedure. He was seen in the preoperative holding area and the operative extremity was identified and signed. He was given a spinal anesthetic, a preoperative antibiotic, and TXA. He was then taken back to the operating room and laid on the table in the supine position. He was given basic sedation. The operative leg was secured to a Puristst leg positioner. The hip was then prepped and draped in sterile fashion. A timeout was done and the patient and the operative extremity was properly identified. An anterior approach was used. Dissection was taken down through the fascia and the tensor muscle belly was retracted laterally and the rectus was retracted medially. The circumflex vessels were identified and ligated. The capsule was then incised and tagged for later repair. The femoral neck was then cut and the femoral head was removed. The acetabulum was exposed. Time was spent doing a complete circumferential labral release. Sequential reaming of the acetabulum up to a size 55 reamer was done. Final reamings were done under fluoroscopy to ensure appropriate version. A Biomet 56 mm G7 cup was then impacted into place. A single 25 mm screw was placed. The E1 polyethylene liner was then snapped into place. Surrounding soft tissues were then injected with 100 cc of an orthopedic pain control cocktail. The proximal femur was then exposed. Sequential broaching up to a size 6 broach was done. Off that broach a size 40 head with a +3.5 neck was trialed. The hip was reduced and fluoroscopic images showed anatomic alignment of the implants in acceptable length. The broach was removed. The final size 6 standard offset Avenir Complete stem was then impacted into place. A ceramic 40 mm head with a +3.5 neck was then impacted onto the stem and the hip was reduced. Final fluoroscopic images showed anatomic alignment of the hip. The capsule was then closed with #1 Vicryl suture. A dilute betadyne lavage was then done for 3 minutes. The joint was then irrigated with normal saline solution. The fascia was closed with #1 PDS suture. Skin was closed with 2-0 Vicryl, eddie, and a Silverlon dressing. He was then transferred to a hospital bed and taken to the post anesthesia care unit in stable condition. He tolerated the procedure well. Yrn Ross PA-C, was present for the entire procedure. He was critical for patient positioning, prepping, draping, retraction exposure, wound closure and application of sterile dressing. I attest to the content of the Intraoperative Record and any orders documented therein. Any exceptions are noted below.
[2024-01-05] MEDS: ROPIV 0.5% 246mg, Ketorolac 30mg, EPINEPHrine 0.5mg in NSS INFIL SCH (10:08)
[2024-01-05] MEDS: TRANEXAMIC ACID 1,000 MG **IV Intra-op IV SCH (10:09)
--- NOTE | 2024-01-05 11:16 | XRay Report ---
SINGLE VIEW PELVIS; SINGLE VIEW LEFT HIP CLINICAL HISTORY: Postoperative examination. FINDINGS: An AP portable view of the hips and pelvis with a crosstable lateral portable view of the l eft hip are compared to study dated 07/08/2023. A bipolar left hip arthroplasty is in near-anatomic al ignment. A single cortical lag screw transfixes the acetabular cup. No acute fracture is identified. There are expected postoperative changes overlying the left hip including skin clips, subcutaneous ga s, and soft tissue swelling. 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 [id number] osteoarthritic change is seen in the right hip. There is atherosclerotic calcification of the femoral arteries. IMPRESSION: Expected postoperative findings status post left hip arthroplasty. No acute fracture is s een. ACT 112: Negative or not required by law. Electronically signed by: Gen Naranjo M.D. 01/05/2024 11:15 AM
--- NOTE | 2024-01-05 11:17 | Anesthesiology Progress Note ---
Date of Service January 05, 2024 Anesthesia Post Procedure Vital Signs Vital Signs: Temp Pulse Resp BP Pulse Ox O2 Del Method O2 Flow Rate 01/05/24 11:05 53 L 18 110/57 L 94 Nasal Cannula 01/05/24 10:55 67 19 108/61 93 Nasal Cannula 01/05/24 10:45 36.5 C 53 L 18 104/55 L 93 Oxymask 01/05/24 10:35 66 18 114/62 94 Oxymask 01/05/24 10:28 36.9 C 72 16 104/62 96 Oxymask 01/05/24 08:20 36.9 C 53 L 18 168/92 H 92 Room Air Pain Intensity Left Hip: Pain Intensity: 3 Transfer of Care Handoff Completed per policy Notes Mental Status: alert / awake / arousable Patient Amnestic to Procedure: Yes Nausea / Vomiting: adequately controlled Pain: adequately controlled Airway Patency, RR, SpO2: stable & adequate BP & HR: stable & adequate Hydration State: stable & adequate Neuraxial Anesthesia: was administered and sensory block is resolving Anesthetic Complications: no major complications apparent and Pt Satisfied with anesthetic care
[2024-01-05] MEDS ORDERED: NALOXONE HCL 0.4 MG/1 ML VIAL/CARP IV PRN (11:31)
[2024-01-05] MEDS ORDERED: bisacodyL 10 MG SUPP PR PRN (11:31)
[2024-01-05] MEDS ORDERED: MAGNESIUM HYDROXIDE SUSP 30 ML UDC PO PRN (11:31)
[2024-01-05] MEDS ORDERED: ALBUTEROL HFA 8 GM INHALER INH PRN (11:31)
[2024-01-05] MEDS ORDERED: METOCLOPRAMIDE HCL INJ 5 MG/ML 2 ML VIAL IV PRN (11:31)
[2024-01-05] MEDS ORDERED: HYDROmorphone INJ 0.5 MG/0.5 ML SYR IV PRN (11:31)
--- NOTE | 2024-01-05 12:01 | Fluoroscopy Report ---
FL hip LT 1V CLINICAL HISTORY: LEFT ANTERIOR HIP COMPARISON STUDY: Left hip radiograph November 05, 2023. FLUOROSCOPY TIME: 12 seconds. Ka,r: 2.1516 mGy FLUOROSCOPIC IMAGES: 1 FINDINGS: Fluoroscopy was provided during total left hip arthroplasty. Hardware is intact. There is a n acetabular screw. There are no unexpected radiopaque foreign bodies. No fractures are identified. IMPRESSION: Fluoroscopy provided during total anterior left hip arthroplasty. ACT 112: Negative or not required by law. Electronically signed by: Dennis Vega M.D. 01/05/2024 11:59 AM
[2024-01-05] MEDS: KETOROLAC TROMETHAMINE 15 MG/ML VIAL IV SCH (12:10)
[2024-01-05] MEDS: SODIUM CHLORIDE 0.9% 1,000 ML IV SCH (12:10)
[2024-01-05 19:09] VITALS: RESP 16
[2024-01-05] MEDS: FLUTICASONE/VILANTEROL 200/25MCG 14 PUFFS/INHALER INH SCH (19:40)
[2024-01-05] MEDS: ASPIRIN 81 MG ECTAB PO SCH (19:40)
[2024-01-05] MEDS: SENNA 8.6 MG TAB PO SCH (20:17)
[2024-01-05] MEDS: DOCUSATE SODIUM 100 MG CAP PO SCH (20:17)
--- NOTE | 2024-01-06 07:09 | Orthopedic Progress Note ---
Date of Service January 06, 2024 Assessment & Plan (1) Status post left hip replacement: Overall he is doing very well. He is not having much pain in the left hip. He will be seen by physical therapy today for ambulation and range of motion exercises. He is on aspirin for DVT prophylaxis. He can be discharged to home later today. He will follow-up orthopedics in 2 weeks. Gregor Renee was seen and examined at bedside this morning. Overall he is doing very well. He is not having much pain in the left hip. He has been up and ambulating to the bathroom. He is no complaints.. Review of Systems All systems reviewed & are unremarkable except as noted in HPI & below. Physical Exam On physical examination left hip, the dressing is clean and dry. His leg is out full extension. He has active dorsiflexion plantarflexion of the left ankle.. Results & Data Results & Data Laboratory Results . Diagnostic Findings Postoperative x-rays of the left hip show the prosthesis to be in anatomic alig nment without any evidence of fracture complication, or loosening.. PG Care Time/CCT Total # of Minutes Spent Total Time Spent with Patient: Total time spent is greater than 50% in coordination of care (as documented) at patient's floor/unit and/or counseling patient: Coding Level of Care Code 02723 Post Operative Follow-Up Diagnoses Status post left hip replacement Z96.642
[2024-01-06 07:10] VITALS: PULSE 53; TEMP 98.4; O2SAT 95
--- NOTE | 2024-01-06 07:10 | Discharge Summary ---
Date of Service January 06, 2024 Admission HPI (Per Admitting) Víctor is a pleasant 68-year-old male who has been dealing with chronic increasing left hip and groin pain. He has been seen by another provider. He had an intraarticular hip injection about 2 months ago. That took care of all of his pain. He is very happy with that. Unfortunately, it lasted 2 weeks. He is still struggling with his left hip. X-rays and clinical examination been diagnostic for advanced osteoarthritis of the left hip. After failing conservative treatment, he has elected to proceed with a left total hip arthroplasty. Admission Exam (Per Admitting) On physical examination left hip, he has decreased range of motion. He has pain with forced internal/external rotation.. Principal Diagnosis Same as "Discharge Diagnosis" noted below under Discharge Instructions. Discharge Exam On physical examination left hip, the dressing is clean and dry. His leg is out full extension. He has active dorsiflexion plantarflexion of the left ankle.. Discharge Data Procedures Performed Operation Date: 01/05/24 09:00 Actual Procedures p Left Anterior Total Hip Arthroplasty(Left) - Yrn Welsh DO Ordered Studies 01/05/24 09:00 FL hip LT 1V Routine Hospital Course (1) Status post left hip replacement: On January 05, 2024 Víctor arrived at [facility] and underwent a left hip replacement without complication. He had a spinal anesthetic. Postoperatively he was started on aspirin for DVT prophylaxis and transferred to the general orthopedic floors. His hospital course was uneventful. On postop day #1, his vital signs were stable and his pain was well-controlled. He was able to participate well with physical therapy doing ambulation and range of motion exercises. He was then discharged to home. He will follow-up orthopedics in 2 weeks. PG Care Time/CCT Total # of Minutes Spent Total Time Spent with Patient: Total time spent is greater than 50% in coordination of care (as documented) at patient's floor/unit and/or counseling patient: Discharge Plan Discharge Items Patient Disposition: Home - Self-Care Reason For Visit: Degenerative Joint Disease Left Hip Discharge Diagnosis: Left hip replacement Activity: Per Instructions section Non-emergency contact: Surgeon Call non-emergency contact if: your wound has increased redness and your wound has increased drainage Follow-up/Referrals: Darrick Acosta MD [Primary Care Provider] - Diet: Regular Addtl Attending Provider Instructions: Activity and Therapy Recommendations: * If you are using [facility] then therapy will be provided at your home until they feel you have accomplished all of your goals. * If you are using [facility] then Physical Therapy will be provided until they feel you are ready to start Outpatient Physical Therapy. * If you are not using home therapy then Outpatient Physical Therapy should start about 3-5 days from your day of surgery. Therapy will last about 6-10 weeks * You were shown a series of exercises in the hospital. Do these exercises three times each day including the exercises you were shown in physical therapy. * Get up and walk several times each day.~ For the first four weeks, try not to stand or walk for more than one hour at a time. If you do stand or walk for more than one hour, you will not hurt anything, but your leg will likely swell.~~ * As you feel comfortable, you may change from the walker or crutches to a cane and~then to independent walking. Medications: * Narcotic You will likely be sent home from the hospital with a prescription for the narcotic pain medication that worked best throughout your stay. * Cefadroxil -take the antibiotic twice a day for 10 days to help prevent infection. * Aspirin Most patients will be required to take Aspirin 81mg twice a day for 6 weeks after surgery. This is obtained [id number] and a prescription is not necessary. * Other medications may be prescribed for specific circumstances. If you have any questions, please call the office at . * Resume previous home medications unless otherwise instructed TEDs/Elastic Stockings: The white elastic stockings help limit swelling and prevent blood clots from forming in your legs. The more you wear them, the more they work. Wear them for six weeks. Dressing Care: Leave the Silverlon dressing in place for 7 days. After 7 days you may remove the dressing. If the incision is not draining then you may leave the eddie open to air. If there is a little bit of drainage or if the eddie are getting stuck on your clothing then cover the incision with a dry dressing. The eddie will be removed at your 2 week follow-up appointment. Showering: You may shower with the Silverlon dressing in place. Do not let the shower spray hit the dressing directly. Pat the Silverlon dressing dry. If the dressing becomes wet underneath, then simply remove the dressing. Keep the incision dry until you are 7 days out from the day of surgery. After 7 days you may remove the Silverlon dressing and shower with the eddie exposed. Let soapy water run over the eddie and pat them dry. Do not scrub or soak the incision. Things To Watch For: * Drainage from the incision site that occurs more than one week after your surgery. * Increased redness at the incision site. * Fever above 102 degrees Fahrenheit. * Unusual chest pain or shortness of breath. * Call [facility] at with any of the above problems Follow-Up Visit: Follow-up with Dr. Welsh's PA (Yrn Ross) 2-3 weeks after your day of surgery. He will remove your eddie and answer any questions. If you have any additional questions or concerns, Dr Welsh is usually in the office at the same time and will be available An appointment was probably scheduled when you signed-up for surgery in the office. If you have any questions call Office Instructions: More detailed instructions as well as Frequently Asked Questions were provided in a folder by our office when you signed-up for surgery. Please review these instructions when you get home. If you have any further questions or concerns, please feel free to call the office at [phone] Pending Studies at Discharge: No Stand-Alone Forms: [facility] C[facility] Medications and DC Order Prescriptions: New oxycodone 5 mg Tablet 5 mg PO Q4H PRN (Reason: pain) Qty: 30 0RF cefadroxil 500 mg capsule 500 mg PO BID 10 Days Qty: 20 0RF Continued omega-3 fatty acids [Fish Oil Concentrate] 1,000 mg capsule 1,000 mg PO BID albuterol sulfate 90 mcg/actuation HFA aerosol inhaler 2 puffs INH Q6H PRN (Reason: sob) ketoprofen 10 % cream in packet 1 applic topical DAILY Spiriva Respimat 2.5 mcg/actuation mist 2 puff inhalation QAM fluticasone propion-salmeterol [Advair HFA] 230-21 mcg/actuation HFA aerosol inhaler 1 inh inhalation BID rosuvastatin 40 mg tablet 40 mg PO QAM celecoxib 100 mg capsule 100 mg PO BID Qty: 60 5RF lidocaine [Lidoderm] 5 % adhesive patch,medicated 1 patch topical DAILY Qty: 30 2RF Rx Instructions: leave on most painful area for up to 12 hrs diclofenac sodium [Voltaren Arthritis Pain] 1 % gel 4 g topical QID Qty: 100 0RF Rx Instructions: apply to left shoulder multivitamin Tablet 1 tab PO QAM cholecalciferol (vitamin D3) [Vitamin D3] 25 mcg (1,000 unit) Tablet 25 mcg PO DAILY Changed aspirin [Adult Aspirin Regimen] 81 mg tablet,delayed release (DR/EC) 81 mg PO BID 42 Days Qty: 0 0RF Discharge Orders: Discharge Order (Routine); Ordered 01/06/24 Ordered By: Yrn Welsh Admission Data Admit Date/Time: 01/05/24 10:29 Attending Provider: Yrn Welsh Admit Provider: Yrn Welsh Primary Care Provider: Darrick Acosta
[2024-01-06] MEDS: UMECLIDINIUM BROMIDE 62.5MCG/BLISTER 7 PUFFS/INHALER INH SCH (07:21)
[2024-01-06] MEDS: ROSUVASTATIN CALCIUM 20 MG TAB PO SCH (07:22)
[2024-01-06] MEDS: dexAMETHasone 4 MG TAB PO SCH (07:22)
[2024-01-06] MEDS: MULTIVITAMIN TAB PO SCH (07:22)
[2024-01-06] MEDS: LIDOCAINE 5% 1 PATCH TD SCH (07:23)
[2024-01-06] MEDS: oxyCODONE HCL IR 5 MG TAB (IMMEDIATE RELEASE) PO PRN (10:45)
[2024-01-06 12:15] VITALS: BP 127/63
== END 2024-01-06 13:15 | disposition home or self-care (01) ==
LOC: ASU 07:58 → 3E 07:58